=== PATIENT | male | born 1970 | race Caucasian/White ===

== ENCOUNTER → 2023-11-20 11:41 | Outpatient (REF) | payer OTHER, SELFPAY | LOC: HWRAD 11:41 | PROVIDERS: ATTENDING PHYSICIAN Student in an Organized Health Care Education/Training Program; FAMILY PHYSICIAN Family Medicine | DX: R10.30 Lower abdominal pain, unspecified (principal) | CPT/HCPCS: 74177; Q9967 ==

== ENCOUNTER 2024-10-15 19:37 | Emergency (ER) | payer OTHER, SELFPAY ==
[2024-10-15 19:51] VITALS: BP 113/72
--- NOTE | 2024-10-15 22:09 | ED.SKININJ ---
HPI-Injury
<Shawanda Bauer REGISTERED DIET TECHNICIAN - Last Filed: 10/16/24 00:29>
General
Chief Complaint: Skin Surface Trauma
Source: patient
Exam Limitations: none
Time Seen by Provider: 10/15/24 21:42
Nursing documentation reviewed up to this point in time: agreed with
History of Present Illness-Injury
Initial Injury comments:
54-year-old male with history of TIA, GERD, aortic aneurysm repair, states he dropped a heavy metal cooler onto his left ring finger within the past few hours causing laceration. Unsure of last tetanus immunization
Past History
<Shawanda Bauer, REGISTERED DIET TECHNICIAN - Last Filed: 10/16/24 00:29>
Past History
ED Past Medical History: GERD and Other (TIA)
ED Past Surgical History: Cardiac (PFO closure, aortic aneurysm repair) and Tonsilectomy
Social History
Tobacco: Non-smoker
Alcohol: None
Personal:
Living: with family
Employment: Retired
Review of Systems
<Shawanda Bauer, REGISTERED DIET TECHNICIAN - Last Filed: 10/16/24 00:29>
Review of Systems
Allergies reviewed?: Yes
All Other Systems: ROS reviewed and negative except as documented in HPI and ROS
Skin: Reports other (cut left ring finger)
Neurological: Reports numbness (decreased sensation palmar surface left ring finger distal to laceration.)
Skin Exam
<Shawanda Bauer, REGISTERED DIET TECHNICIAN - Last Filed: 10/16/24 00:29>
Laceration
palmar left ring finger between PIP and MCP joint:
Length in cm: 1.5
Orientation: horizontal
Type of Laceration: simple
Any active bleeding?: no active bleeding
Distal skin color and temperature: normal-warm & good color
Normal distal neurovascular exam: No
Range of motion: limited
Phy Exam
<Shawanda Bauer REGISTERED DIET TECHNICIAN - Last Filed: 10/16/24 00:29>
Physical Exam
Physical Exam:
PHYSICAL EXAMINATION:
General: no apparent distress, not acutely ill
Neuro: alert and oriented.
Psychiatric: well kept. interactive and cooperative
Musculoskeletal: Moves with ease. Tendon function intact left ring finger but limited due to mild swelling, pain
Skin: Warm, pink.
Course
<Shawanda aBuer REGISTERED DIET TECHNICIAN - Last Filed: 10/16/24 00:29>
Orders/Labs/Results
Orders:
Orders
10/15/24 20:07
Hand, Left 3 View [CR Hand - Left Min 3 Views] Urgent
Comment:
Reason For Exam: injury
10/15/24 22:04
Tetanus/Diphth/Acelpertussis [Adacel] 0.5 ml IM .ONCE ONE
Vital Signs
Initial and Last Documented VS:
Initial Vital Signs
Temp Pulse Resp BP Pulse Ox
98.7 F 74 20 113/72 98
10/15/24 19:51 10/15/24 19:51 10/15/24 19:51 10/15/24 19:51 10/15/24 19:51
Last Documented Vital Signs
Temp Pulse Resp BP Pulse Ox
98.1 F 63 18 140/86 98
10/15/24 22:17 10/15/24 22:17 10/15/24 22:17 10/15/24 22:17 10/15/24 19:51
<Theodore Boone MD - Last Filed: 10/15/24 22:16>
Orders/Labs/Results
Orders:
Orders
10/15/24 20:07
Hand, Left 3 View [CR Hand - Left Min 3 Views] Urgent
Comment:
Reason For Exam: injury
10/15/24 22:04
Tetanus/Diphth/Acelpertussis [Adacel] 0.5 ml IM .ONCE ONE
Vital Signs
Initial and Last Documented VS:
Initial Vital Signs
Temp Pulse Resp BP Pulse Ox
98.7 F 74 20 113/72 98
10/15/24 19:51 10/15/24 19:51 10/15/24 19:51 10/15/24 19:51 10/15/24 19:51
Last Documented Vital Signs
Temp Pulse Resp BP Pulse Ox
98.1 F 63 18 140/86 98
10/15/24 22:17 10/15/24 22:17 10/15/24 22:17 10/15/24 22:17 10/15/24 19:51
Procedures
<Shawanda Bauer, REGISTERED DIET TECHNICIAN - Last Filed: 10/16/24 00:29>
Laceration Closure
left ring finger between PIP and MCP joint:
Status of Wound: clean
Size of Wound in cm: 1.5
Description of Wound Edges: sharp
Preparation: cleaned with Betadine (soft surgical scrub)
Anesthesia: 1% Lidocaine
Revision/Debridement: routine- no revision
Wound exploration: explored to base- no FB and no tendon involvement
Type of Closure: interrupted sutures
Skin Closure Material: 4-0 nylon
Number of sutures: 5
Additional information:
ATB ointment and band aid applied
<Shawanda Bauer, REGISTERED DIET TECHNICIAN - Last Filed: 10/16/24 00:29>
MDM/Problems Addressed
MDM/Problems Addressed:
54-year-old male with history of TIA, GERD states he dropped a heavy metal cooler onto his left ring finger within the past few hours causing laceration. Unsure of last tetanus immunization
[place] thick ring very loose proximal to the lacerations. Offered to cut it off but he declines and is comfortable keeping an eye on it, this is reasonable as it is rather loose.
Tdap updated.
Dr. Boone in to evaluate and agrees with assessment and plan
<Shawanda Bauer NP - Last Filed: 10/16/24 00:29>
*Critical Care Note
Total Time (30-74mins, 75-104mins- exclusive of procedures): Not Applicable
ED Attending Note
<Shawanda Bauer NP - Last Filed: 10/16/24 00:29>
-
Portions of this chart may have been created with voice recognition software.� Occasional wrong word or��sound alike� substitutions may have occurred due to the inherent limitations of voice recognition software.
<Theodore Boone MD - Last Filed: 10/15/24 22:16>
ED Attending Note
Patient seen and examined by attending physician: Yes
I performed the substantive portion of visit, reviewed & personally made and approve the management plan that is documented in note by myself or JENNIFFER.: Yes
ED Attending Note:
Patient had a crush injury to the left hand today. Ring was on. Laceration of the finger.
On exam patient has a laceration just distal to the ring of his left fourth digit. Minimal swelling. Ring is loose. Motor or sensory neurovascular intact. X-rays unremarkable.
Discussed whether to cut the ring off with the patient. Ultimately joint decision. Given the looseness of the ring reasonable to hold off but to return immediately with any concern for increased swelling. Laceration repair/Td by [facility]
Discharge Plan
Departure
Patient Disposition: Home (Routine Discharge)
Date of Disposition: 10/15/24
Time of Disposition: 22:06
Patient with high blood pressure during this ER visit?: No
Condition: Good
Discharge Problem:
Laceration of left ring finger
Instructions: Laceration Repair With Stitches (DC)
Prescriptions:
No Action
Aspir-81
81 mg PO DAILY
atorvastatin 10 mg Tablet
10 mg PO Q48H
coenzyme Q10 [CoQ-10] 100 mg Capsule
100 mg PO DAILY
Referrals:
Jim Mayberry MD [Family Provider, [facility]] - Call in 1-3 days for appt
Activity Restrictions/Additional Instructions:
As we discussed, your x-ray shows nothing broken.
Have the sutures removed in 10-12 days.
Check your ring frequently throughout the days to be sure it remains loose.
Return here immediately to have it cut off if it becomes to tight to easily rotate.
Interventions
Interventions:
*Risk Screen - Suicide Last Done: 10/15/24 19:51
*General Assessment Last Done: 10/15/24 19:51
*Neglect/Abuse Screening Last Done: 10/15/24 19:51
*ED- Fall Risk Assessment Last Done: 10/15/24 19:51
*ED COVID-19 Vaccine History Last Done: 10/15/24 19:51
*Nursing Disposition Last Done: 10/15/24 22:32
ED-Skin Assessment Last Done: 10/15/24 20:43
Discharge Date and Time
Discharge Date/Time: 10/15/24 22:36
Print Language: ALBANIAN
[2024-10-15] MEDS: ADACEL 0.5 ML IM (22:14)
[2024-10-15 22:17] VITALS: BP 140/86
== END 2024-10-15 22:36 | disposition home or self-care (01) ==
LOC: EMR 19:37
PROVIDERS: EMERGENCY PHYSICIAN Emergency Medicine; FAMILY PHYSICIAN Family Medicine
DX: S61.215A Laceration without foreign body of left ring finger without damage to nail, initial encounter (principal); S67.22XA Crushing injury of left hand, initial encounter; W23.0XXA Caught, crushed, jammed, or pinched between moving objects, initial encounter; Z23 Encounter for immunization; K21.9 Gastro-esophageal reflux disease without esophagitis; I71.9 Aortic aneurysm of unspecified site, without rupture; Z86.73 Personal history of transient ischemic attack (TIA), and cerebral infarction without residual deficits
CPT/HCPCS: 99283; 12001; 90471; 73130; 90715

== ENCOUNTER 2024-12-23 11:30 | Emergency (ER) | payer OTHER, SELFPAY ==
[2024-12-23 11:58] VITALS: BP 132/81
--- NOTE | 2024-12-23 13:44 | ED.SKININJ ---
HPI-Injury
General
Chief Complaint: Bite
Time Seen by Provider: 12/23/24 13:34
History of Present Illness-Injury
Initial Injury comments:
54-year-old male presents to the emergency department for evaluation of a right calf dog bite, dog is up-to-date on vaccinations. Patient is up-to-date on tetanus. He is able to ambulate with discomfort. Takes aspirin no other blood thinners.
Past History
Past History
ED Past Medical History: GERD and Other (TIA)
ED Past Surgical History: Cardiac (PFO closure, aortic aneurysm repair) and Tonsilectomy
Social History
Tobacco: Non-smoker
Alcohol: None
Personal:
Living: with family
Employment: Retired
Review of Systems
Review of Systems
Allergies reviewed?: Yes
All Other Systems: ROS reviewed and negative except as documented in HPI and ROS
Phy Exam
Physical Exam
Physical Exam:
GEN: Well appearing, NAD, WDWN
HEENT: Oral mucosa moist, no scleral icterus
Cardiac: Regular rate
Lung: No respiratory distress, no tachypnea
MSK: 1 cm laceration to the mid calf on the right, smaller superficial laceration to the right anterior leg
Skin: Good color, no pallor or jaundice, no rashes
Neuro: AO x3, moves all extremities freely
Psych: Calm, cooperative
Course
Vital Signs
Initial and Last Documented VS:
Initial Vital Signs
Temp Pulse Resp BP Pulse Ox
98.5 F 70 18 132/81 98
12/23/24 11:58 12/23/24 11:58 12/23/24 11:58 12/23/24 11:58 12/23/24 11:58
Last Documented Vital Signs
Temp Pulse Resp BP Pulse Ox
98.5 F 70 18 132/81 98
12/23/24 11:58 12/23/24 11:58 12/23/24 11:58 12/23/24 11:58 12/23/24 13:45
MDM/Problems Addressed
MDM/Problems Addressed:
No indication for primary closure, discussed supportive care. Will give short course of preventative Augmentin
*Pulse Oximetry
SaO2: 98
Oxygen Mode of Delivery: Room air
Patient hypoxic: no
*Critical Care Note
Total Time (30-74mins, 75-104mins- exclusive of procedures): Not Applicable
ED Attending Note
-
Portions of this chart may have been created with voice recognition software.� Occasional wrong word or��sound alike� substitutions may have occurred due to the inherent limitations of voice recognition software.
Discharge Plan
Departure
Patient Disposition: Home (Routine Discharge)
Date of Disposition: 12/23/24
Time of Disposition: 13:44
Patient with high blood pressure during this ER visit?: No
Discharge Problem:
Dog bite of right lower leg
Instructions: Animal Bites (DC)
Prescriptions:
New
amoxicillin-pot clavulanate 875-125 mg tablet
1 tab PO BID Qty: 6 0RF
No Action
Aspir-81
81 mg PO DAILY
atorvastatin 10 mg Tablet
10 mg PO Q48H
coenzyme Q10 [CoQ-10] 100 mg Capsule
100 mg PO DAILY
Activity Restrictions/Additional Instructions:
Elevate and ice the leg
Use the LAKESHIA wrap when upright to minimize swelling/bleeding
Interventions
Interventions:
*Risk Screen - Suicide Last Done: 12/23/24 11:58
*Nursing Disposition Last Done: 12/23/24 13:59
ED-Skin Assessment Last Done: 12/23/24 13:38
Discharge Date and Time
Discharge Date/Time: 12/23/24 14:00
Print Language: OCCIT[place]
== END 2024-12-23 14:00 | disposition home or self-care (01) ==
LOC: EMR 11:30
PROVIDERS: EMERGENCY PHYSICIAN Student in an Organized Health Care Education/Training Program; FAMILY PHYSICIAN Family Medicine
DX: S81.851A Open bite, right lower leg, initial encounter (principal); W54.0XXA Bitten by dog, initial encounter; K21.9 Gastro-esophageal reflux disease without esophagitis; Z79.82 Long term (current) use of aspirin; Z86.73 Personal history of transient ischemic attack (TIA), and cerebral infarction without residual deficits
CPT/HCPCS: 99282